=== PATIENT | female | born 1970 | race Native Hawaiian/Other Pacific Islander ===

== ENCOUNTER 2016-06-22 19:14 | Emergency (ER) | payer OTHER, SELFPAY ==
[2016-06-22 19:26] VITALS: BP 121/80; PULSE 70; RESP 18; TEMP 98.2; O2SAT 100
--- NOTE | 2016-06-22 20:21 | ED PDOC ---
HPI: Abdomen Time Seen by Provider: 06/22/16 19:29 Chief Complaint (Nursing): Abdominal Pain Chief Complaint (Provider): Abdominal Pain History Per: Patient History/Exam Limitations: no limitations Onset/Duration Of Symptoms: Days (1 week) Outside of [place] travel?: No Current Symptoms Are (Timing): Still Present Severity: Moderate Pain Scale Rating Of: 4 Location Of Pain/Discomfort: LLQ Associated Symptoms: Other (b/l leg swelling and paresthesias; denies shortness of breath). denies: Fever, Vomiting, Diarrhea, Chest Pain, Urinary Symptoms Additional Complaint(s): Gabby Diaz is a 45 year old female, with a past medical history of cervical cancer, who presents to the emergency department for the evaluation of abdominal pain, localized to her left lower quadrant, that the patient has been experiencing for 1 week. Associated bilateral leg swelling and paresthesias are currently present. Denies a fever, vomiting, diarrhea, urinary symptoms, chest pain, or shortness of breath. PMD: none specified Past Medical History Reviewed: Historical Data, Nursing Documentation, Vital Signs Vital Signs: Last Vital Signs Temp 98.2 F 06/22/16 19:22 Pulse 70 06/22/16 19:22 Resp 18 06/22/16 19:22 BP 121/80 06/22/16 19:22 Pulse Ox 100 06/23/16 00:41 - Medical History Other PMH: Cervical Cancer - Surgical History Other surgeries: Hysterectomy (11/21) - Family History Family History: States: No Known Family Hx - Social History Current smoker - smoking cessation education provided: No Ex-Smoker (has not smoked in the last 12 months): No Alcohol: None Drugs: Denies - Allergies Allergies/Adverse Reactions: Allergies Allergy/AdvReac Type Severity Reaction Status Date / Time Penicillins Allergy SHORTNESS Verified 06/22/16 21:52 OF BREATH Review of Systems ROS Statement: Except As Marked, All Systems Reviewed And Found Negative Constitutional: Negative for: Fever Cardiovascular: Positive for: Edema (b/l legs inclusive of paresthesias). Negative for: Chest Pain Respiratory: Negative for: Shortness of Breath Gastrointestinal: Positive for: Abdominal Pain (LLQ). Negative for: Vomiting, Diarrhea Genitourinary Female: Negative for: Dysuria, Hematuria Physical Exam - Reviewed Nursing Documentation Reviewed: Yes Vital Signs Reviewed: Yes - Physical Exam Appears: Positive for: No Acute Distress. Negative for: Uncomfortable Head Exam: Positive for: ATRAUMATIC, NORMOCEPHALIC Skin: Positive for: Normal Color, Warm, Dry Cardiovascular/Chest: Positive for: Regular Rate, Rhythm. Negative for: Murmur Respiratory: Positive for: Normal Breath Sounds. Negative for: Respiratory Distress Gastrointestinal/Abdominal: Positive for: Normal Exam, Soft, Tenderness (LLQ). Negative for: Distended Back: Positive for: Normal Inspection. Negative for: L CVA Tenderness, R CVA Tenderness Extremity: Positive for: Normal ROM, Swelling (b/l lower extremities, L more swollen than R). Negative for: Tenderness Neurologic/Psych: Positive for: Alert, Oriented - Laboratory Results Result Diagrams: 06/22/16 20:19 06/22/16 20:19 Urine dip results: Negative for: Leukocyte Esterase, Blood, Nitrate, Ketones - ECG O2 Sat by Pulse Oximetry: 100 (RA) Pulse Ox Interpretation: Normal - CT Scan/US Extremity Ultrasound Other Rad Studies (CT/US): Interpreted By Me, Read By Radiologist, Radiology Report Reviewed Medical Decision Making Medical Decision Makin:29 Initial Impression: Abdominal pain and paresthesias Differential Diagnoses include, but are not limited to, abdominal cancer, diverticulitis, small bowel obstruction, as well as deep vein thrombosis. Initial Plan: * Extremity Ultrasound * CBC * CMP * PT/PTT * Urine Dip * Reevaluation 21:18 Extremity Ultrasound Results FINDINGS: Right deep veins: Common femoral, superficial femoral, popliteal and posterior tibial veins were evaluated. All veins examined are compressible. There are no intraluminal filling defects. There is expected blood flow on Doppler imaging. There is change in waveform with augmentation. Left deep veins: Common femoral, superficial femoral, popliteal and posterior tibial veins were evaluated. All veins examined are compressible. There are no intraluminal filling defects. There is expected blood flow on Doppler imaging. There is change in waveform with augmentation. IMPRESSION: No deep venous thrombosis in the visualized vascular segments of the lower extremities. 2338: CT A/P impression: Colitis with probable reactive inflammation in the adjacent urinary bladder; no CT findings of appendicitis or diverticulitis; slight interval increase in conspicuity of the left lower lobe nodule now 5.4 mm; interval hysterectomy Additional findings as described above. Footer: As per Fleischner Society guidelines for follow-up and management of pulmonary nodules: For patients at low risk (minimal or absent history of smoking and of other known risk factors), recommend follow-up chest CT at 12 months; if unchanged, no further follow-up. For patient at high risk (history of smoking or of other known risk factors), recommend initial follow-up chest CT at 6-12 months, then at 18-24 months if no interval change. Scribe Attestation: Documented by Chase Bernal, acting as a scribe for Ariel Montemayor MD. Provider Scribe Attestation: All medical record entries made by the Scribe were at my direction and personally dictated by me. I have reviewed the chart and agree that the record accurately reflects my personal performance of the history, physical exam, medical decision making, and the department course for this patient. I have also personally directed, reviewed, and agree with the discharge instructions and disposition. Disposition - Clinical Impression Clinical Impression: Leg swelling, Colitis, Neuropathic pain, Neutropenia, Pulmonary nodule - Patient ED Disposition Is Patient to be Admitted: No Doctor Will See Patient In The: Office Counseled Patient/Family Regarding: Studies Performed, Diagnosis, Need For Followup - Disposition Referrals: [facility] [Outside] Disposition: Routine/Home Disposition Time: 00:30 Condition: GOOD Additional Instructions: Return for worsening. Follow up with your PCP in 2-3 days. Instructions: Peripheral Neuropathy (ED), Leg Edema (ED), Colitis (ED), Pulmonary Nodules (ED)
[2016-06-22 20:31] LABS: BASO % 1.1 % (0.0-2.0); EOS # 0.1 K/uL (0.0-0.7); EOS % 4.8 % (0.0-4.0); HEMATOCRIT 36.9 % (34.0-47.0); LYMPH # 0.6 K/uL (1.0-4.3); LYMPH % 29.2 % (20.0-40.0); MEAN CELL VOLUME 88.7 fl (81.0-99.0); MEAN CORPUSCULAR HEMOGLOBIN 28.7 pg (27.0-31.0); MEAN CORPUSCULAR HGB CONC 32.4 g/dL (33.0-37.0); MEAN PLATELET VOLUME 8.9 fl (7.2-11.7); MONO # 0.2 K/uL (0.0-0.8); MONO % 7.7 % (0.0-10.0); NEUT # 1.2 K/uL (1.8-7.0); NEUT % 57.2 % (50.0-75.0); NRBC % 0.1 % (0.0-0.0); RED CELL DISTRIBUTION WIDTH 13.4 % (11.5-14.5); WHITE BLOOD COUNT 2.1 K/uL (4.8-10.8)
[2016-06-22 20:36] LABS: ALB/GLOB RATIO 1.5 (1.0-2.1); ALKALINE PHOSPHATASE 53 U/L (38-126); ALT/SGPT 30 U/L (9-52); AST/SGOT 21 U/L (14-36); BILIRUBIN,TOTAL 0.5 mg/dl (0.2-1.3); BLOOD UREA NITROGEN 12 mg/dl (7-17); CALCIUM 8.9 mg/dL (8.4-10.2); CARBON DIOXIDE 26 mmol/L (22-30); CHLORIDE 103 mmol/L (98-107); GFR AFRICAN-AMERICAN > 60; GLUCOSE,RANDOM 83 mg/dL (65-105); POTASSIUM 3.4 MMOL/L (3.6-5.0); SODIUM 140 mmol/l (132-148); TOTAL PROTEIN 7.1 G/DL (6.3-8.2)
[2016-06-22] MEDS ORDERED: Iohexol 240 (50 ml) PO ONE (20:58)
[2016-06-22 21:10] LABS: PARTIAL THROMBOPLASTIN TIME 25.1 SECONDS (23.3-32.5)
--- NOTE | 2016-06-22 21:18 | US ---
EXAM: US Duplex Bilateral Lower Extremity Veins CLINICAL HISTORY: 45 years old, female; Pain; Leg, lower; Bilateral; Additional info: Leg swelling TECHNIQUE: Real-time ultrasound scan of the veins of the bilateral lower extremities with color Doppler flow, spectral waveform analysis and compression. EXAM DATE/TIME: 06/22/2016 7:52 PM COMPARISON: There are no prior studies for comparison. FINDINGS: Right deep veins: Common femoral, superficial femoral, popliteal and posterior tibial veins were evaluated. All veins examined are compressible. There are no intraluminal filling defects. There is expected blood flow on Doppler imaging. There is change in waveform with augmentation. Left deep veins: Common femoral, superficial femoral, popliteal and posterior tibial veins were evaluated. All veins examined are compressible. There are no intraluminal filling defects. There is expected blood flow on Doppler imaging. There is change in waveform with augmentation. Impression: No deep venous thrombosis in the visualized vascular segments of the lower extremities
[2016-06-22] MEDS ORDERED: Sodium Chloride 0.9% 50 ML IV ONE (22:53)
[2016-06-22] MEDS ORDERED: Iohexol 300 100 ML IJ ONE (22:53)
--- NOTE | 2016-06-22 23:39 | CT ---
EXAM: CT Abdomen and Pelvis With Intravenous Contrast CLINICAL HISTORY: 45 years old, female; Pain; Abdominal pain; Localized; Left lower quadrant (llq); Prior surgery; Surgery date: 6+ months; Surgery type: Hysterectomy 11/2015; Additional info: Abdominal pain S/P lap hysterectomy TECHNIQUE: Axial computed tomography images of the abdomen and pelvis with intravenous contrast. This CT exam was performed using one or more of the following dose reduction techniques: automated exposure control, adjustment of the mA and/or kV according to patient size, and/or use of iterative reconstruction technique. Coronal and sagittal reformatted images were created and reviewed. CONTRAST: 90 mL of administered intravenously. EXAM DATE/TIME: 06/22/2016 8:58 PM COMPARISON: CT - ABD PELVIS PO IV CONTRAST 11/09/2015 10:54:36 AM FINDINGS: Lower thorax: Heart size is normal. There is minimal dependent atelectasis at the lung bases. There is increasing conspicuity of the 5.4 mm left lower lobe nodule, image 7 series 2 There is a small hiatal hernia. ABDOMEN: Liver: There is fatty infiltration of the liver. Gallbladder and bile ducts: unremarkable Pancreas: unremarkable Spleen: unremarkable Adrenals: unremarkable Kidneys and ureters: There is a tiny right lower pole renal cyst.Kidneys and ureters are otherwise unremarkable. Stomach and bowel: Stomach is incompletely distended which accentuates the gastric wall.Bowel rotation is normal.There is no obstruction. There is contrast throughout the small bowel. Terminal ileum is unremarkable. Visualized portion the appendix is unremarkable. Colon is incompletely distended which limits evaluation. There is sigmoid and rectal wall thickening. There is minimal adjacent inflammation. There are few scattered diverticula. Appendix: See stomach and bowel PELVIS: Bladder: Urinary bladder is partially distended. Bladder is partially distended. There is mild bladder wall thickening. There is minimal perivesical inflammation. Reproductive: Uterus is absent. There are no adnexal masses. ABDOMEN and PELVIS: Intraperitoneal space: There is small amount of free fluid in the pelvis. There is edema in the perirectal and presacral soft tissues. Bones/joints: There are no acute osseous abnormalities. There are early degenerative changes L5/S1. There is mild to space narrowing and disc bulging. Soft tissues: There is edema in the lower abdominal wall. Vasculature: Vascular structures are unremarkable. Lymph nodes: There is no pathologic adenopathy. IMPRESSION: Colitis with probable reactive inflammation in the adjacent urinary bladder; no CT findings of appendicitis or diverticulitis; slight interval increase in conspicuity of the left lower lobe nodule now 5.4 mm; interval hysterectomy Additional findings as described above. Footer: As per Fleischner Society guidelines for follow-up and management of pulmonary nodules: For patients at low risk (minimal or absent history of smoking and of other known risk factors), recommend follow-up chest CT at 12 months; if unchanged, no further follow-up. For patient at high risk (history of smoking or of other known risk factors), recommend initial follow-up chest CT at 6-12 months, then at 18-24 months if no interval change.
== END 2016-06-22 20:00 | disposition home or self-care (01) ==
LOC: H.ER 19:14
DX: M79.89 Other specified soft tissue disorders (principal); R91.1 Solitary pulmonary nodule; D70.9 Neutropenia, unspecified; Z85.41 Personal history of malignant neoplasm of cervix uteri; Z88.0 Allergy status to penicillin; Z90.710 Acquired absence of both cervix and uterus

== ENCOUNTER 2016-06-28 19:09 | Inpatient (IN) | payer SELFPAY ==
[2016-06-28] MEDS ORDERED: Sodium Chloride 0.9% 1,000 ML IV STA (20:34)
[2016-06-28 21:06] LABS: BASO % 0.8 % (0.0-2.0); EOS # 0.1 K/uL (0.0-0.7); EOS % 4.9 % (0.0-4.0); HEMATOCRIT 39.9 % (34.0-47.0); LYMPH # 0.7 K/uL (1.0-4.3); MEAN CELL VOLUME 88.1 fl (81.0-99.0); MEAN CORPUSCULAR HEMOGLOBIN 28.7 pg (27.0-31.0); MEAN CORPUSCULAR HGB CONC 32.6 g/dL (33.0-37.0); MEAN PLATELET VOLUME 9.4 fl (7.2-11.7); MONO # 0.2 K/uL (0.0-0.8); MONO % 8.3 % (0.0-10.0); NEUT # 1.3 K/uL (1.8-7.0); NRBC % 0.3 % (0.0-0.0); RED CELL DISTRIBUTION WIDTH 13.3 % (11.5-14.5); WHITE BLOOD COUNT 2.3 K/uL (4.8-10.8)
[2016-06-28 21:15] LABS: ALB/GLOB RATIO 1.5 (1.0-2.1); ALKALINE PHOSPHATASE 53 U/L (38-126); ALT/SGPT 29 U/L (9-52); AST/SGOT 25 U/L (14-36); BILIRUBIN,TOTAL 0.6 mg/dl (0.2-1.3); BLOOD UREA NITROGEN 10 mg/dl (7-17); CALCIUM 9.1 mg/dL (8.4-10.2); CARBON DIOXIDE 25 mmol/L (22-30); CHLORIDE 103 mmol/L (98-107); GFR AFRICAN-AMERICAN > 60; GLUCOSE,RANDOM 84 mg/dL (65-105); LIPASE 56 U/L (23-300); POTASSIUM 4.1 MMOL/L (3.6-5.0); SODIUM 139 mmol/l (132-148); TOTAL PROTEIN 7.4 G/DL (6.3-8.2)
[2016-06-28 21:22] LABS: PARTIAL THROMBOPLASTIN TIME 25.2 SECONDS (23.3-32.5)
[2016-06-28] MEDS ORDERED: metroNIDAZOLE 500mg/100ml NS 100 ML IVPB STA (21:25)
[2016-06-28] MEDS ORDERED: Ciprofloxacin 400mg/200ml D5W 400 MG/200 ML BAG IV STA (21:25)
--- NOTE | 2016-06-28 21:54 | ED PDOC ---
HPI: Abdomen Time Seen by Provider: 06/28/16 19:36 Chief Complaint (Nursing): Abdominal Pain Chief Complaint (Provider): Abdominal Pain History Per: Patient History/Exam Limitations: no limitations Onset/Duration Of Symptoms: Days Current Symptoms Are (Timing): Still Present Additional Complaint(s): 45 y/o female with a past medical history of cervical cancer presents to the emergency department with a complaint of persistent diffuse abdominal pain associated with increased normal stool frequency x1 week. Patient was discharged on 06/22/2016 and was told to follow up with PMD; when she saw her PCP today she was advised her visit the ER for an evaluation. Denies fever, chills, cough, chest pain, shortness of breath, urinary symptoms, nausea, vomiting, or diarrhea. Of note, patient was seen in the ED [address] workup that demonstrated colitis and CBC that showed leukopenia. Patient has a history of a hysterectomy and underwent 18 cycles of radiation therapy. PMD: Dr. Danny Colvin Past Medical History Reviewed: Historical Data, Nursing Documentation, Vital Signs Vital Signs: Last Vital Signs Temp 97.8 F 06/29/16 00:13 Pulse 59 L 06/29/16 00:13 Resp 19 06/29/16 00:13 BP 99/64 L 06/29/16 00:13 Pulse Ox 99 06/29/16 00:13 - Medical History Other PMH: Cervical CA - Surgical History Other surgeries: hysterectomy - Family History Family History: States: Unknown Family Hx - Home Medications Home Medications: Ambulatory Orders Medication Instructions Recorded Acetaminophen with Codeine 2 tab PO Q4H PRN #22 tab 09/24/15 [Tylenol with Codeine No. 3 300 mg-30 mg] Naproxen [Naprosyn] 1 tab PO BID PRN #60 tab 09/24/15 - Allergies Allergies/Adverse Reactions: Allergies Allergy/AdvReac Type Severity Reaction Status Date / Time Penicillins Allergy SHORTNESS Verified 06/28/16 19:18 OF BREATH Review of Systems ROS Statement: Except As Marked, All Systems Reviewed And Found Negative Constitutional: Negative for: Fever, Chills Cardiovascular: Negative for: Chest Pain Respiratory: Negative for: Cough, Shortness of Breath Gastrointestinal: Positive for: Abdominal Pain, Other (Increased stool frequency but normal bowel movements). Negative for: Nausea, Vomiting, Diarrhea Genitourinary Female: Negative for: Dysuria, Frequency, Incontinence, Hematuria Physical Exam - Reviewed Nursing Documentation Reviewed: Yes Vital Signs Reviewed: Yes - Physical Exam Appears: Positive for: Non-toxic, No Acute Distress Head Exam: Positive for: ATRAUMATIC, NORMOCEPHALIC Skin: Positive for: Normal Color, Warm, Dry Neck: Positive for: Normal, Supple Cardiovascular/Chest: Positive for: Regular Rate, Rhythm. Negative for: Murmur Respiratory: Positive for: Normal Breath Sounds. Negative for: Accessory Muscle Use, Respiratory Distress Gastrointestinal/Abdominal: Positive for: Soft, Tenderness (Mild diffuse abdominal tenderness) Extremity: Positive for: Normal ROM. Negative for: Pedal Edema Neurologic/Psych: Positive for: Alert, Oriented - Laboratory Results Result Diagrams: 06/28/16 20:57 06/28/16 20:57 - ECG O2 Sat by Pulse Oximetry: 100 (RA) Pulse Ox Interpretation: Normal Medical Decision Making Medical Decision Making: Time: 19:36 Initial impression: 45 y/o with abdominal pain and leukopenia in setting of known cervical cancer status post radiation therapy Initial plan: --ED Urine dipstick (POC) --Ciprofloxacin 400 mg in 200 ml IV Stat --Metronidazole 500 mg/100 ml IVPB Stat --Sodium Chloride 1,000 ml IV 1,000 mls/hr --Blood Culture Stat --IV Insertion --Urinalysis Stat --Revaluation --Patient declines analgesia Labs reviewed sig for leukopenia CT A/P from 5 days [employer] demonstrated colitis IV Cipro and Flagyl ordered Plan to admit for further tx ----Admit to hospital Routine: Inpatient Colitis (Infectious vs Radiation?) Scribe Attestation: Documented by Maggi Bush, acting as a scribe for Michael Lozano MD. Provider Scribe Attestation: All medical record entries made by the Scribe were at my direction and personally dictated by me. I have reviewed the chart and agree that the record accurately reflects my personal performance of the history, physical exam, medical decision making, and the department course for this patient. I have also personally directed, reviewed, and agree with the discharge instructions and disposition. Disposition - Clinical Impression Clinical Impression: Colitis - Patient ED Disposition Is Patient to be Admitted: Yes Discussed With : Karina Aguilar - Disposition Disposition Time: 21:00 Condition: FAIR - Pt Status Changed To: Hospital Disposition Of: Inpatient - Admit Certification Admit to Inpatient:: After my assessment, the patient will require hospitalization for at least two midnights. This is because of the severity of symptoms shown, intensity of services needed, and/or the medical risk in this patient being treated as an outpatient.
[2016-06-28] MEDS ORDERED: Ciprofloxacin 400mg/200ml D5W 400 MG/200 ML BAG IVPB ONE (22:10)
--- NOTE | 2016-06-28 22:22 | CP.PCM.HP ---
History of Present Illness - History of Present Illness History of Present Illness: 45 y/o female with a past medical history of cervical cancer (last dose of radiation march 2016) presented to the emergency department with a complaint of persistent diffuse abdominal pain associated with increased normal stool frequency x1 week. Patient was in the ED on 06/22/2016 with same complaints work up including abdominal CT showed evidence of colitis, but pt was leukopenic and was presumed to be due to radiation and not treated on antibiotics. Pt followed up with her PCP earlier today, Per pt's PCP (Dr Colvin),on physical exam pt's bladder appeared to very distended, pt was tender on palpation; however since there is no bladder scan available in clinic pt was told to go to [facility] ED to be evaluated. .Denies fever, chills, cough, chest pain , shortness of breath, urinary symptoms, nausea, vomiting, or diarrhea. PMD: Dr. Danny Colvin Present on Admission - Present on Admission Any Indicators Present on Admission: No Review of Systems - Review of Systems All systems: reviewed and no additional remarkable complaints except Review of Systems: Per HPI Past Patient History - Past Social History Smoking Status: Never Smoked - PSYCHIATRIC Hx Substance Use: No - SURGICAL HISTORY Hx Hysterectomy: Yes (cervial ca) Meds Allergies/Adverse Reactions: Allergies Allergy/AdvReac Type Severity Reaction Status Date / Time Penicillins Allergy SHORTNESS Verified 06/28/16 19:18 OF BREATH Physical Exam - Constitutional Appears: Non-toxic, No Acute Distress - Head Exam Head Exam: NORMOCEPHALIC - Eye Exam Eye Exam: Normal appearance - ENT Exam ENT Exam: Mucous Membranes Moist - Respiratory Exam Respiratory Exam: Clear to Auscultation Bilateral, NORMAL BREATHING PATTERN. absent: Rhonchi, Wheezes - Cardiovascular Exam Cardiovascular Exam: REGULAR RHYTHM, +S1, +S2 - GI/Abdominal Exam GI & Abdominal Exam: Normal Bowel Sounds, Soft, Tenderness Additional comments: tenderness mainly in the lower abdomen - Extremities Exam Extremities exam: Negative for: calf tenderness, pedal edema - Neurological Exam Neurological exam: Alert, CN II-XII Intact, Oriented x3 Results - Vital Signs Recent Vital Signs: Last Vital Signs Temp 98.0 F 06/28/16 19:18 Pulse 64 06/28/16 19:18 Resp 16 06/28/16 19:18 BP 116/73 06/28/16 19:18 Pulse Ox 100 06/28/16 22:06 - Labs Result Diagrams: 06/28/16 20:57 06/28/16 20:57 Assessment & Plan - Assessment and Plan (Free Text) Assessment: 45 y/o female with history of cervical cancer completed radiation in march2016,being admitted for colitis seen on previous abdominal CT, and concern for bladder urinary retention Plan: colitis more likely due to radiation than infectious process started on flagyl and cipro in ED, will continue pt remains afebrile continue to monitor Bladder distention Bladder scan perform at bedside by nurse on med-surge : 147ml Pt last voided 2-3 hrs prior Made pt's PCP aware of finding. Monitor pain- toradol for pain diet- regular DVT prohylaxis- Lovenox SC 40mg
[2016-06-28] MEDS ORDERED: metroNIDAZOLE 500mg/100ml NS 100 ML IVPB ONE (22:37)
[2016-06-29] MEDS: metroNIDAZOLE 500mg/100ml NS 100 ML IVPB SCH ×2 (08:43→20:55)
[2016-06-29] MEDS: Ciprofloxacin 400mg/200ml D5W 400 MG/200 ML BAG IVPB SCH ×2 (08:43→22:07)
[2016-06-29] MEDS: Enoxaparin 40 mg Syringe SC SCH (08:44)
--- NOTE | 2016-06-29 09:26 | CP.PCM.PN ---
Subjective - Date & Time of Evaluation Date of Evaluation: 06/29/16 Time of Evaluation: 07:00 - Subjective Subjective: Patient was seen and examined at bedside this morning. Patient still complaining of lower abdominal/pelvic/pubic pain, intensity 5/10, that has been improved since admission. Patient reports she is voiding, this morning twice, and denies urinary symptoms or blood in urine. Patient states she is passing gas and bowel movements. Denies chills, nausea, vomiting, blood in stools, CP, SOB or other complains Objective - Vital Signs/Intake and Output Vital Signs (last 24 hours): Temp Pulse Resp BP Pulse Ox 98.5 F 55 L 18 99/65 L 98 06/29/16 08:25 06/29/16 08:25 06/29/16 08:25 06/29/16 08:25 06/29/16 08:25 Intake and Output: 06/29/16 06/29/16 06:59 18:59 Output Total 200 Balance -200 - Medications Medications: Current Medications Enoxaparin Sodium (Lovenox) 40 mg SC DAILY MAKENZIE PRN Reason: Protocol Last Admin: 06/29/16 08:44 Dose: 40 mg Ciprofloxacin (Cipro 400mg/200ml Dsw) 400 mg in 200 mls @ 200 mls/hr IVPB Q12 [facility] Last Admin: 06/29/16 08:43 Dose: 200 mls/hr Metronidazole (Flagyl 500mg/100ml Ns) 100 mls @ 100 mls/hr IVPB Q12 MAKENZIE Last Admin: 06/29/16 08:43 Dose: 100 mls/hr Ketorolac Tromethamine (Toradol) 15 mg IVP Q6 PRN PRN Reason: Pain, moderate (4-7) Ketorolac Tromethamine (Toradol) 30 mg IVP Q6 PRN PRN Reason: Pain, severe (8-10) - Labs Labs: PT 10.6 SECONDS (9.6-11.2) 06/28/16 20:57 INR 1.02 (0.92-1.08) 06/28/16 20:57 APTT 25.2 SECONDS (23.3-32.5) 06/28/16 20:57 - Constitutional Appears: Non-toxic, No Acute Distress - ENT Exam ENT Exam: Mucous Membranes Moist - Respiratory Exam Respiratory Exam: Clear to Ausculation Bilateral, NORMAL BREATHING PATTERN. absent: Rales, Rhonchi, Wheezes - Cardiovascular Exam Cardiovascular Exam: REGULAR RHYTHM, +S1, +S2 - GI/Abdominal Exam GI & Abdominal Exam: Soft, Tenderness (mild tender to palpation of lower abdomen , but no rebound tenderness), Normal Bowel Sounds. absent: Distended, Guarding , Rigid - Exam Additional comments: mild tenderness in pubic area, no ecchymosis or lesion of overlying skin noted - Extremities Exam Extremities Exam: Normal Inspection. absent: Calf Tenderness, Pedal Edema - Neurological Exam Neurological Exam: Alert, Awake, Oriented x3 - Skin Skin Exam: Dry, Intact, Normal Color Assessment and Plan - Assessment and Plan (Free Text) Assessment: 45 y/o female with history of cervical cancer completed radiation in march2016 , being admitted for colitis seen on previous abdominal CT, now with new onset leucopenia. Plan: Colitis -More likely due to radiation than infectious process Afebrile C/W Ciprofloxacin 400 mg IV BID C/W Flagyl 500 mg IV BID C/W pain management Consider GI consult. Dr. Everett. F/U recommendations Leucopenia -Afebrile -H/O of Cervical cancer s/p radiation on March/2016 -F/U blood culture -Hematology Oncology consult appreciated. Dr. Prieto. F/U recommendations H/O recent Bladder distention -Possible secondary to radiation therapy -Improving today, has voided twice this morning, no urinary symptoms -UA done at ED was negative -CMP was WNL -Bladder scan perform at bedside by nurse on med-surge on admission: 147 ml -Will monitor Diet Regular diet DVT prohylaxis- Lovenox SC 40mg
[2016-06-29 09:37] LABS: RBC URINE < 1 /hpf (0-3); URINE BILIRUBIN NEGATIVE (NEGATIVE); URINE BLOOD NEGATIVE (NEGATIVE); URINE COLOR YELLOW (YELLOW); URINE GLUCOSE (UA) NEG (Normal); URINE KETONE NEGATIVE (NEGATIVE); URINE LEUKOCYTE ESTERASE TRACE Leu/uL (Negative); URINE PROTEIN NEGATIVE (NEGATIVE); URINE UROBILINOGEN 0.2-1.0 mg/dL (0.2-1.0); WBC URINE 1 /hpf (0-5)
--- NOTE | 2016-06-29 12:42 | CP.PCM.CON ---
History of Present Illness - History of Present Illness History of Present Illness: 45 year old female with a history of cervical cancer s/p surgery at [facility] and adjuvant radiotherapy completed in 03/2016 in [place], admitted with abdominal pain, found to have colitis and cystitis. The patient reports to burning pelvic pain and burning with urination. Past Patient History - Past Medical History & Family History Past Medical History?: Yes - Past Social History Smoking Status: Never Smoked - CARDIAC Hx Cardiac Disorders: No - PULMONARY Hx Respiratory Disorders: No - NEUROLOGICAL Hx Neurological Disorder: No - HEENT Hx HEENT Problems: No - RENAL Hx Chronic Kidney Disease: No - ENDOCRINE/METABOLIC Hx Endocrine Disorders: No - HEMATOLOGICAL/ONCOLOGICAL Hx Blood Disorders: Yes (cervical CA) - INTEGUMENTARY Hx Dermatological Problems: No - MUSCULOSKELETAL/RHEUMATOLOGICAL Hx Falls: No - GASTROINTESTINAL Hx Gastrointestinal Disorders: No - GENITOURINARY/GYNECOLOGICAL Hx Genitourinary Disorders: Yes (hysterectomy) Hx Cervical Cancer: Yes - PSYCHIATRIC Hx Substance Use: No - SURGICAL HISTORY Hx Hysterectomy: Yes (cervial ca) - ANESTHESIA Hx Anesthesia: Yes Hx Anesthesia Reactions: No Meds Allergies/Adverse Reactions: Allergies Allergy/AdvReac Type Severity Reaction Status Date / Time Penicillins Allergy SHORTNESS Verified 06/28/16 19:18 OF BREATH - Medications Medications: Current Medications Enoxaparin Sodium (Lovenox) 40 mg SC DAILY [facility] PRN Reason: Protocol Last Admin: 06/29/16 08:44 Dose: 40 mg Ciprofloxacin (Cipro 400mg/200ml Dsw) 400 mg in 200 mls @ 200 mls/hr IVPB Q12 [facility] Last Admin: 06/29/16 08:43 Dose: 200 mls/hr Metronidazole (Flagyl 500mg/100ml Ns) 100 mls @ 100 mls/hr IVPB Q12 [facility] Last Admin: 06/29/16 08:43 Dose: 100 mls/hr Ketorolac Tromethamine (Toradol) 15 mg IVP Q6 PRN PRN Reason: Pain, moderate (4-7) Ketorolac Tromethamine (Toradol) 30 mg IVP Q6 PRN PRN Reason: Pain, severe (8-10) Physical Exam - Head Exam Head Exam: ATRAUMATIC - Eye Exam Eye Exam: Normal appearance - ENT Exam ENT Exam: Mucous Membranes Dry - Respiratory Exam Respiratory Exam: NORMAL BREATHING PATTERN - Cardiovascular Exam Cardiovascular Exam: +S1, +S2 - GI/Abdominal Exam GI & Abdominal Exam: Normal Bowel Sounds - Extremities Exam Extremities exam: Positive for: normal inspection - Neurological Exam Neurological exam: Oriented x3 - Psychiatric Exam Psychiatric exam: Normal Affect, Normal Mood - Skin Skin Exam: Warm Results - Vital Signs Recent Vital Signs: Last Vital Signs Temp 98.5 F 06/29/16 08:25 Pulse 55 L 06/29/16 08:25 Resp 18 06/29/16 08:25 BP 99/65 L 06/29/16 08:25 Pulse Ox 98 06/29/16 08:25 - Labs Result Diagrams: 06/30/16 06:40 06/28/16 20:57 Labs: Laboratory Results - last 24 hr 06/29/16 09:13 Urine Color Yellow Urine Clarity Clear Urine pH 6.0 Ur Specific Terrell 1.010 Urine Protein Negative Urine Glucose (UA) Neg Urine Ketones Negative Urine Blood Negative Urine Nitrate Negative Urine Bilirubin Negative Urine Urobilinogen 0.2-1.0 Ur Leukocyte Esterase Trace Urine RBC (Auto) < 1 Urine Microscopic WBC 1 Ur Squamous Epith Cells 1 Assessment & Plan (1) Colitis Assessment and Plan: likely related to radiation GI evaluation outpatient f/u Status: Acute (2) Neutropenia Assessment and Plan: with mild leukopenia likely related to radiation Thank you for this interesting consult. Status: Acute
[2016-06-30 07:52] LABS: HEMATOCRIT 39.7 % (34.0-47.0); MEAN CELL VOLUME 88.1 fl (81.0-99.0); MEAN CORPUSCULAR HEMOGLOBIN 28.9 pg (27.0-31.0); MEAN CORPUSCULAR HGB CONC 32.8 g/dL (33.0-37.0)
[2016-06-30 08:15] VITALS: TEMP 97.9; O2SAT 99
[2016-06-30] MEDS: metroNIDAZOLE 500mg/100ml NS 100 ML IVPB SCH (09:12)
[2016-06-30] MEDS: Ciprofloxacin 400mg/200ml D5W 400 MG/200 ML BAG IVPB SCH (09:12)
[2016-06-30] MEDS: Enoxaparin 40 mg Syringe SC SCH (09:13)
--- NOTE | 2016-06-30 10:28 | CP.PCM.DIS ---
Provider - Provider Date of Admission: 06/28/16 21:23 Attending physician: Marga Nina MD Time Spent in preparation of Discharge (in minutes): 30 Diagnosis - Discharge Diagnosis (1) Colitis Status: Acute Priority: High Comment: Unclear etiology. Radiation vs Infectious. (2) Pulmonary nodule Status: Acute Priority: High Comment: Prescription for chest Ct given. Will f/u results as outpatient with PMD. (3) History of cervical cancer Status: Chronic Comment: F/U with FISCAL ANALYST. Hospital Course - Lab Results Lab Results: Most Recent Lab Values WBC 2.0 K/uL (4.8-10.8) L* 06/30/16 06:40 RBC 4.51 Mil/uL (3.80-5.20) 06/30/16 06:40 Hgb 13.0 g/dL (12.0-16.0) 06/30/16 06:40 Hct 39.7 % (34.0-47.0) 06/30/16 06:40 MCV 88.1 fl (81.0-99.0) 06/30/16 06:40 MCH 28.9 pg (27.0-31.0) 06/30/16 06:40 MCHC 32.8 g/dL (33.0-37.0) L 06/30/16 06:40 RDW 13.0 % (11.5-14.5) 06/30/16 06:40 Plt Count 133 K/uL (130-400) 06/30/16 06:40 MPV 9.4 fl (7.2-11.7) 06/28/16 20:57 Neut % (Auto) 56.0 % (50.0-75.0) 06/28/16 20:57 Lymph % (Auto) 30.0 % (20.0-40.0) 06/28/16 20:57 [place] % (Auto) 8.3 % (0.0-10.0) 06/28/16 20:57 Eos % (Auto) 4.9 % (0.0-4.0) H 06/28/16 20:57 Baso % (Auto) 0.8 % (0.0-2.0) 06/28/16 20:57 Neut # 1.3 K/uL (1.8-7.0) L 06/28/16 20:57 Lymph # 0.7 K/uL (1.0-4.3) L 06/28/16 20:57 [place] # 0.2 K/uL (0.0-0.8) 06/28/16 20:57 Eos # 0.1 K/uL (0.0-0.7) 06/28/16 20:57 Baso # 0.0 K/uL (0.0-0.2) 06/28/16 20:57 PT 10.6 SECONDS (9.6-11.2) 06/28/16 20:57 INR 1.02 (0.92-1.08) 06/28/16 20:57 APTT 25.2 SECONDS (23.3-32.5) 06/28/16 20:57 Sodium 139 mmol/l (132-148) 06/28/16 20:57 Potassium 4.1 MMOL/L (3.6-5.0) 06/28/16 20:57 Chloride 103 mmol/L (98-107) 06/28/16 20:57 Carbon Dioxide 25 mmol/L (22-30) 06/28/16 20:57 Anion Gap 16 (10-20) 06/28/16 20:57 BUN 10 mg/dl (7-17) 06/28/16 20:57 Creatinine 0.5 mg/dL (0.7-1.2) L 06/28/16 20:57 Est GFR ( Amer) > 60 06/28/16 20:57 Est GFR (Non-Af Amer) > 60 06/28/16 20:57 Random Glucose 84 mg/dL (65-105) 06/28/16 20:57 Lactic Acid 1.0 MMOL/L (0.7-2.1) 06/28/16 20:57 Calcium 9.1 mg/dL (8.4-10.2) 06/28/16 20:57 Total Bilirubin 0.6 mg/dl (0.2-1.3) 06/28/16 20:57 AST 25 U/L (14-36) 06/28/16 20:57 ALT 29 U/L (9-52) 06/28/16 20:57 Alkaline Phosphatase 53 U/L (38-126) 06/28/16 20:57 Total Protein 7.4 G/DL (6.3-8.2) 06/28/16 20:57 Albumin 4.4 g/dL (3.5-5.0) 06/28/16 20:57 Globulin 3.0 gm/dL (2.2-3.9) 06/28/16 20:57 Albumin/Globulin Ratio 1.5 (1.0-2.1) 06/28/16 20:57 Lipase 56 U/L (23-300) 06/28/16 20:57 Urine Color Yellow (YELLOW) 06/29/16 09:13 Urine Clarity Clear (Clear) 06/29/16 09:13 Urine pH 6.0 (5.0-8.0) 06/29/16 09:13 Ur Specific [place] 1.010 (1.003-1.030) 06/29/16 09:13 Urine Protein Negative mg/dL (NEGATIVE) 06/29/16 09:13 Urine Glucose (UA) Neg mg/dL (Normal) 06/29/16 09:13 Urine Ketones Negative mg/dL (NEGATIVE) 06/29/16 09:13 Urine Blood Negative (NEGATIVE) 06/29/16 09:13 Urine Nitrate Negative (NEGATIVE) 06/29/16 09:13 Urine Bilirubin Negative (NEGATIVE) 06/29/16 09:13 Urine Urobilinogen 0.2-1.0 mg/dL (0.2-1.0) 06/29/16 09:13 Ur Leukocyte Esterase Trace Ralph/uL (Negative) 06/29/16 09:13 Urine RBC (Auto) < 1 /hpf (0-3) 06/29/16 09:13 Urine Microscopic WBC 1 /hpf (0-5) 06/29/16 09:13 Ur Squamous Epith Cells 1 /hpf (0-5) 06/29/16 09:13 - Hospital Course Hospital Course: 45 y/o female with a past medical history of cervical cancer s/p radiation therapy (last dose of radiation march 2016) who was admitted with colitis seen in CT scan and possible episode of urinary retention. During admission patient was afebrile, vital signs stable. Patient was managed with IV antibiotics and GI was consulted because patient history of radiation therapy. No steroid treatment was recommended at this time. Patient was found to be leucopenic, and because patient's history of cervical cancer s/p radiation, and f/u as outpatient was recommended. Patient was seen and examined at bedside this morning. Patient is stable to be discharge home in PO antibiotics, and will f/u as outpatient with PMD, GI doctor, Hematology oncology, and FISCAL ANALYST. Home medications: Ciprofloxacin 500 mg BID for 3 days - Date & Time of H&P Date of H&P: 06/28/16 Time of H&P: 22:20 Discharge Exam - Head Exam Head Exam: NORMOCEPHALIC - Additional Findings Additional findings: Constitutional Appears: Non-toxic, No Acute Distress - ENT Exam ENT Exam: Mucous Membranes Moist - Respiratory Exam Respiratory Exam: Clear to Ausculation Bilateral, NORMAL BREATHING PATTERN. absent: Rales, Rhonchi, Wheezes - Cardiovascular Exam Cardiovascular Exam: REGULAR RHYTHM, +S1, +S2 - GI/Abdominal Exam GI & Abdominal Exam: Soft, very mild tender to palpation of lower abdomen, but no rebound tenderness, no rigidity or guarding noted), Normal Bowel Sounds. absent: Distended, Guarding, Rigid - Exam Additional comments: mild tenderness in pubic area, no ecchymosis or lesion of overlying skin noted - Extremities Exam Extremities Exam: Normal Inspection. absent: Calf Tenderness, Pedal Edema - Neurological Exam Neurological Exam: Alert, Awake, Oriented x3 - Skin Skin Exam: Dry, Intact, Normal Color Discharge Plan - Discharge Medications Prescriptions: Ciprofloxacin [Cipro] 500 mg PO Q12 #6 tab - Follow Up Plan Condition: GOOD Disposition: HOME/ ROUTINE Patient education suggested?: Yes Additional Instructions: FOLLOW UP GYNE. F/U with PMD Dr. Danny Colvin within 1 week ER precautions ( fever, diarrheas, vomiting, worsening of abdominal pain...) Referrals: Prieto Prieto MD [Staff Provider] - Marguerite CORREIA,MD Juan [Medical Doctor] - Danny Colvin MD [Family Provider] -
--- NOTE | 2016-06-30 14:50 | CP.PCM.CON ---
History of Present Illness - History of Present Illness History of Present Illness: GI consult requested by Dr Orion Lopez- This is a 45 y/o female with a past medical history of cervical cancer (last dose of radiation march 2016) presented to the emergency department with a complaint of persistent diffuse abdominal pain. Patient was in the ED on 06/22/2016 with same complaints work up including abdominal CT showed evidence of colitis, but pt was leukopenic and was presumed to be due to radiation and not treated on antibiotics. Today at bedside she denies diarrhea, nausea, vomiting, abdominal cramps, fever, chills, rectal bleeding. Her symptoms are likely radiation related. Review of Systems - Review of Systems Review of Systems: 12 point ROS unremarkable except that documented in HPI Past Patient History - Past Medical History & Family History Past Medical History?: Yes - Past Social History Smoking Status: Never Smoked - CARDIAC Hx Cardiac Disorders: No - PULMONARY Hx Respiratory Disorders: No - NEUROLOGICAL Hx Neurological Disorder: No - HEENT Hx HEENT Problems: No - RENAL Hx Chronic Kidney Disease: No - ENDOCRINE/METABOLIC Hx Endocrine Disorders: No - HEMATOLOGICAL/ONCOLOGICAL Hx Blood Disorders: Yes (cervical CA) - INTEGUMENTARY Hx Dermatological Problems: No - MUSCULOSKELETAL/RHEUMATOLOGICAL Hx Falls: No - GASTROINTESTINAL Hx Gastrointestinal Disorders: No - GENITOURINARY/GYNECOLOGICAL Hx Genitourinary Disorders: Yes (hysterectomy) Hx Cervical Cancer: Yes - PSYCHIATRIC Hx Substance Use: No - SURGICAL HISTORY Hx Hysterectomy: Yes (cervial ca) - ANESTHESIA Hx Anesthesia: Yes Hx Anesthesia Reactions: No Meds Allergies/Adverse Reactions: Allergies Allergy/AdvReac Type Severity Reaction Status Date / Time Penicillins Allergy SHORTNESS Verified 06/28/16 19:18 OF BREATH - Medications Medications: Current Medications Enoxaparin Sodium (Lovenox) 40 mg SC DAILY [facility] PRN Reason: Protocol Last Admin: 06/30/16 09:13 Dose: 40 mg Ciprofloxacin (Cipro 400mg/200ml Dsw) 400 mg in 200 mls @ 200 mls/hr IVPB Q12 [facility] Last Admin: 06/30/16 09:12 Dose: 200 mls/hr Metronidazole (Flagyl 500mg/100ml Ns) 100 mls @ 100 mls/hr IVPB Q12 [facility] Last Admin: 06/30/16 09:12 Dose: 100 mls/hr Ketorolac Tromethamine (Toradol) 15 mg IVP Q6 [facility] PRN Reason: Pain, moderate (4-7) Ketorolac Tromethamine (Toradol) 30 mg IVP Q6 PRN PRN Reason: Pain, severe (8-10) Physical Exam - Constitutional Appears: Non-toxic, No Acute Distress - Head Exam Head Exam: ATRAUMATIC, NORMAL INSPECTION, NORMOCEPHALIC - Eye Exam Eye Exam: EOMI, Normal appearance, PERRL - ENT Exam ENT Exam: Mucous Membranes Moist, Normal Exam - Respiratory Exam Respiratory Exam: Clear to Auscultation Bilateral, NORMAL BREATHING PATTERN - Cardiovascular Exam Cardiovascular Exam: REGULAR RHYTHM, RRR, +S1, +S2 - GI/Abdominal Exam GI & Abdominal Exam: Distended, Normal Bowel Sounds, Soft. absent: Tenderness - Extremities Exam Extremities exam: Positive for: full ROM, normal inspection - Neurological Exam Neurological exam: Alert, CN II-XII Intact, Normal Gait, Oriented x3, Reflexes Normal - Psychiatric Exam Psychiatric exam: Normal Affect, Normal Mood - Skin Skin Exam: Dry, Intact, Normal Color, Warm Results - Vital Signs Recent Vital Signs: Last Vital Signs Temp 97.9 F 06/30/16 08:14 Pulse 59 L 06/30/16 08:14 Resp 20 06/30/16 08:14 BP 103/67 06/30/16 08:14 Pulse Ox 99 06/30/16 08:14 - Labs Result Diagrams: 06/30/16 06:40 06/28/16 20:57 Labs: Laboratory Results - last 24 hr 06/30/16 06:40 WBC 2.0 L* RBC 4.51 Hgb 13.0 Hct 39.7 MCV 88.1 MCH 28.9 MCHC 32.8 L RDW 13.0 Plt Count 133 Assessment & Plan - Assessment and Plan (Free Text) Assessment: 45 yr old F with Cervical CA s/p radiation, last dose Mar 2016 admitted with leukopenia and abdominal pain which is intermittent. Denies loose stools, nausea , vomiting, rectal bleeding. No role for steroid suppositories. CT reviewed. Likely radiation induced changes. Will discharge to home as she is tolerating regular meals and symptoms are intermittent. No indication for antibiotics. No rectal bleeding.
--- NOTE | 2016-06-30 15:05 | CP.PCM.PCO ---
Assessment/Plan - Assessment and Plan (Free Text) Assessment: I saw and evaluated the patient. I discussed the case with the resident and agree with the findings and plan as documented in the resident's note. Feels better. will continue Cipro x total of 7 days since pt does feel better. Check oupt lung ct scan Pt agreeable to follow up with Dr. Prieto. Pt will follow up with surgical oncologist.
[2016-06-30 16:17] VITALS: BP 100/65; PULSE 65; RESP 18
== END 2016-06-30 16:46 | disposition home or self-care (01) | DRG 814 ==
LOC: H.ER 19:09 → H.ERHOLD 21:23 → H.MEDSURG1 22:50
PROVIDERS: ADMIT Family Medicine Geriatric Medicine; ATTEND Family Medicine Geriatric Medicine
DX: K52.9 Noninfective gastroenteritis and colitis, unspecified (principal); D70.8 Other neutropenia; N32.89 Other specified disorders of bladder; N30.90 Cystitis, unspecified without hematuria; R91.1 Solitary pulmonary nodule; Z85.41 Personal history of malignant neoplasm of cervix uteri; Z88.0 Allergy status to penicillin; Y84.2 Radiological procedure and radiotherapy as the cause of abnormal reaction of the patient, or of later complication, without mention of misadventure at the time of the procedure

== ENCOUNTER 2016-07-21 16:57 | Observation (INO) | payer SELFPAY ==
--- NOTE | 2016-07-21 17:22 | ED PDOC ---
HPI: Chest Pain Time Seen by Provider: 07/21/16 17:21 Chief Complaint (Nursing): Chest Pain Additional Complaint(s): Patient is a 45 y/o F with hx of cervical cancer, sent in by family medicine clinic, Dr. Colvin, for evaluation. Patient was in clinic today when she began complaining of L sided chest pain. She had EKG done that showed t wave inversions in v4-v6 that was new compared to prior ekg in 2016. She reports intermittent episodes x months. She reports associated shortness of breath. Denies nausea/vomiting, abdominal pain. She was given 325mg aspirin in transit to ED. Past Medical History Vital Signs: Last Vital Signs Temp 98.0 F 07/21/16 17:02 Pulse 72 07/21/16 18:58 Resp 15 07/21/16 18:58 BP 101/69 07/21/16 18:58 Pulse Ox 99 07/21/16 18:58 - Medical History PMH: Denies: Chronic Kidney Disease - Family History Family History: States: Unknown Family Hx - Home Medications Home Medications: Ambulatory Orders Medication Instructions Recorded No Known Home Med 07/21/16 - Allergies Allergies/Adverse Reactions: Allergies Allergy/AdvReac Type Severity Reaction Status Date / Time Penicillins Allergy SHORTNESS Verified 07/21/16 17:02 OF BREATH NIKHIL Risk Score for UA/NSTEMI - NIKHIL Risk Score Age > 64: NO 3 or more CAD Risk Factors: NO Known CAD (Stenosis greater than 50%): NO Aspirin use in past 7 days: NO Severe Angina: NO EKG ST changes greater than 0.5mm: NO Positive Cardiac Marker: NO NIKHIL Score: 0 Risk %: 5% Wells Criteria for PE - Wells Criteria for Pulmonary Embolism Malignancy w/treatment within 6 months, or palliative: Yes Total Score: 1 Review of Systems Constitutional: Negative for: Fever, Chills Cardiovascular: Positive for: Chest Pain. Negative for: Palpitations, Paroxysmal Noc. Dyspnea Respiratory: Positive for: Shortness of Breath, SOB with Exertion. Negative for : Cough Gastrointestinal: Negative for: Nausea, Vomiting, Abdominal Pain, Diarrhea Genitourinary Female: Negative for: Dysuria Neurological: Negative for: Weakness, Numbness Physical Exam - Reviewed Nursing Documentation Reviewed: Yes Vital Signs Reviewed: Yes - Physical Exam Appears: Positive for: Well, Non-toxic Head Exam: Positive for: ATRAUMATIC, NORMAL INSPECTION, NORMOCEPHALIC Eye Exam: Positive for: EOMI, Normal appearance, PERRL Neck: Positive for: Normal, Painless ROM Cardiovascular/Chest: Positive for: Regular Rate, Rhythm Respiratory: Positive for: Normal Breath Sounds. Negative for: Rhonchi, Stridor , Wheezing Gastrointestinal/Abdominal: Positive for: Soft. Negative for: Tenderness, Mass , Distended Back: Positive for: Normal Inspection Extremity: Positive for: Normal ROM Neurologic/Psych: Positive for: Alert, Oriented - Laboratory Results Result Diagrams: 07/21/16 17:40 07/21/16 17:40 - ECG O2 Sat by Pulse Oximetry: 100 Medical Decision Making Medical Decision Making: Patient is presenting with chest pain and shortness of breath with new EKG changes. EKG in ED shows NSR at 60bpm with normal intervals and t wave inversion in v3 with flattening v4-v5. EKG at clinic showed t wave inversions in v2-v4 per Dr. Colvin. Spoke to Dr. Colvin, family service worker and she is requesting workup in ED and then tele observation due to chest pain with ekg changes. 6:49PM Cxray negative. Trop x 1 negative. Pending d-dimer. 700PM Will sign out to Dr. Lozano to follow-up d-dimer, reevaluate and final dispo. Disposition - Clinical Impression Clinical Impression: Chest pain - Disposition Disposition Time: 19:00 Condition: STABLE
[2016-07-21 17:59] LABS: BASO % 0.6 % (0.0-2.0); EOS # 0.1 K/uL (0.0-0.7); EOS % 5.3 % (0.0-4.0); HEMATOCRIT 37.9 % (34.0-47.0); LYMPH # 0.7 K/uL (1.0-4.3); LYMPH % 29.2 % (20.0-40.0); MEAN CELL VOLUME 87.9 fl (81.0-99.0); MEAN CORPUSCULAR HEMOGLOBIN 28.5 pg (27.0-31.0); MEAN CORPUSCULAR HGB CONC 32.4 g/dL (33.0-37.0); MEAN PLATELET VOLUME 8.8 fl (7.2-11.7); MONO # 0.2 K/uL (0.0-0.8); MONO % 8.3 % (0.0-10.0); NEUT # 1.4 K/uL (1.8-7.0); NEUT % 56.6 % (50.0-75.0); NRBC % 0.1 % (0.0-0.0); RED CELL DISTRIBUTION WIDTH 13.4 % (11.5-14.5); WHITE BLOOD COUNT 2.4 K/uL (4.8-10.8)
[2016-07-21 18:21] LABS: ALB/GLOB RATIO 1.5 (1.0-2.1); ALKALINE PHOSPHATASE 49 U/L (38-126); ALT/SGPT 34 U/L (9-52); AST/SGOT 22 U/L (14-36); BILIRUBIN,TOTAL 0.3 mg/dl (0.2-1.3); BLOOD UREA NITROGEN 10 mg/dl (7-17); CALCIUM 8.6 mg/dL (8.4-10.2); CARBON DIOXIDE 28 mmol/L (22-30); CHLORIDE 106 mmol/L (98-107); GFR AFRICAN-AMERICAN > 60; GLUCOSE,RANDOM 75 mg/dL (65-105); POTASSIUM 3.9 MMOL/L (3.6-5.0); SODIUM 144 mmol/l (132-148); TOTAL PROTEIN 7.3 G/DL (6.3-8.2)
--- NOTE | 2016-07-21 19:26 | ED PDOC ---
- Laboratory Results Result Diagrams: 07/21/16 17:40 07/21/16 17:40 - ECG O2 Sat by Pulse Oximetry: 100 Medical Decision Making Medical Decision Makin:00 Patient is signed out to me by Susana Ray MD pending d-dimer, reevaluation, and final reevaluation. 19:38 Spoke with . Patient's d-dimer is normal. Patient will be admitted to telemetry observation. Scribe Attestation: Documented by Esme Mayers, acting as a scribe for Michael Lozano MD. Provider Scribe Attestation: All medical record entries made by the Scribe were at my direction and personally dictated by me. I have reviewed the chart and agree that the record accurately reflects my personal performance of the history, physical exam, medical decision making, and the department course for this patient. I have also personally directed, reviewed, and agree with the discharge instructions and disposition. Disposition - Clinical Impression Clinical Impression: Chest pain - POA Present On Arrival: None - Disposition Disposition: Hospitalized as Observation Patient Disposition Time: 19:38 Condition: STABLE
--- NOTE | 2016-07-21 20:10 | CP.PCM.HP ---
History of Present Illness - History of Present Illness History of Present Illness: CC: Chest pain x1 week with associate b/l lower extremity edema 45F referred by [facility] for chest pain and b/l lower extremity swelling with EKG showing acute T-wave abnormality. Patient reports sharp, knife-like, constant sternal chest pain radiating to the back not associated with dizziness, nausea, or diaphoresis for 1 week. She denies any radiation to jaw, neck, or LEFT arm and denies worsening of pain with leaning forward or on deep respiration. b/l lower extremity swelling since yesterday but denies any associated calf pain or recent travel. Otherwise, she denies cough, sick contacts, fevers, chills, abd pain, diarrhea, dysuria, vaginal bleeding. PMH: SCC of Cervix, b/l Tinnitus, solitary lung nodule, XR x28 rounds last 2016, Neutropenia, Colitis PSH: Radical hysterectomy (11/2015) Smoker: Denies Alcohol: Denies Drugs: Denies ALL: PCN (anaphylaxis) XIMENA: None Present on Admission - Present on Admission Any Indicators Present on Admission: No Review of Systems - Review of Systems All systems: reviewed and no additional remarkable complaints except - Cardiovascular Cardiovascular: Chest Pain - Integumentary Integumentary: Swelling (b/l lower extremities) Past Patient History - Past Medical History & Family History Past Medical History?: Yes - Past Social History Smoking Status: Never Smoked - CARDIAC Hx Cardiac Disorders: No - PULMONARY Hx Respiratory Disorders: No - NEUROLOGICAL Hx Neurological Disorder: No - HEENT Hx HEENT Problems: No - RENAL Hx Chronic Kidney Disease: No - ENDOCRINE/METABOLIC Hx Endocrine Disorders: No - HEMATOLOGICAL/ONCOLOGICAL Hx Blood Disorders: No - INTEGUMENTARY Hx Dermatological Problems: No - MUSCULOSKELETAL/RHEUMATOLOGICAL Hx Musculoskeletal Disorders: No - GASTROINTESTINAL Hx Gastrointestinal Disorders: No Hx Colitis: Yes - GENITOURINARY/GYNECOLOGICAL Hx Genitourinary Disorders: No - PSYCHIATRIC Hx Psychophysiologic Disorder: No - SURGICAL HISTORY Hx Hysterectomy: Yes - ANESTHESIA Hx Anesthesia: Yes Hx Anesthesia Reactions: No Meds Allergies/Adverse Reactions: Allergies Allergy/AdvReac Type Severity Reaction Status Date / Time Penicillins Allergy SHORTNESS Verified 07/21/16 17:02 OF BREATH Physical Exam - Constitutional Appears: Well, Non-toxic, No Acute Distress - Head Exam Head Exam: ATRAUMATIC, NORMAL INSPECTION - Eye Exam Eye Exam: EOMI, PERRL - ENT Exam ENT Exam: Mucous Membranes Moist, Normal Exam - Neck Exam Neck exam: Positive for: Normal Inspection. Negative for: Lymphadenopathy - Respiratory Exam Respiratory Exam: Clear to Auscultation Bilateral, NORMAL BREATHING PATTERN. absent: Rales, Wheezes - Cardiovascular Exam Cardiovascular Exam: REGULAR RHYTHM. absent: JVD - GI/Abdominal Exam GI & Abdominal Exam: Normal Bowel Sounds, Soft. absent: Tenderness - Extremities Exam Extremities exam: Positive for: full ROM, normal capillary refill, normal inspection, pedal pulses present. Negative for: pedal edema, tenderness - Neurological Exam Neurological exam: Alert, Oriented x3 - Psychiatric Exam Psychiatric exam: Normal Affect, Normal Mood - Skin Skin Exam: Normal Color, Warm Results - Vital Signs Recent Vital Signs: Last Vital Signs Temp 37.1 C 07/21/16 19:58 Pulse 62 07/21/16 19:58 Resp 15 07/21/16 19:58 BP 133/66 07/21/16 19:58 Pulse Ox 100 07/21/16 19:57 - Labs Result Diagrams: 07/21/16 17:40 07/21/16 17:40 Assessment & Plan (1) Chest pain Assessment and Plan: History and physical exam inconsistent with cardiac type chest pain. Troponin negative and EKG SR and no acute ST-T changes. The other concern was for possible PE given pelvic surgery and hospitalization within the past month, however d-dimer was negative. Costochondritis vs. reflux vs. pericarditis ( less likely). CXR negative for acute pathology. - Serial Troponins - Sucralfate 1gm, PO, BID - Ibuprofen for chest discomfort Status: Acute (2) DVT prophylaxis Assessment and Plan: Lovenox 40mg, SC, HS Status: Acute (3) History of cervical cancer Assessment and Plan: Surgery 12/02/2015, 25x radiation daily, 3x weekly, last radiation . Has been leukopenic since radiation. - Has appt with Dr Prieto for further follow up Status: Chronic
[2016-07-21] MEDS ORDERED: Enoxaparin 40 mg Syringe SC SCH (22:08)
--- NOTE | 2016-07-22 08:32 | RAD ---
HISTORY: chest pain COMPARISON: Comparison is made to 11/03/2015 FINDINGS: LUNGS: No active pulmonary disease. PLEURA: No significant pleural effusion identified, no pneumothorax apparent. CARDIOVASCULAR: Normal. OSSEOUS STRUCTURES: No significant abnormalities. VISUALIZED UPPER ABDOMEN: Normal. OTHER FINDINGS: None. IMPRESSION: No radiographic evidence of acute pulmonary disease.
[2016-07-22] MEDS ORDERED: Enoxaparin 40 mg Syringe SC SCH (09:00)
[2016-07-22] MEDS ORDERED: Benzocaine/Menthol (Cepacol) Lozenge PO PRN (09:41)
--- NOTE | 2016-07-22 10:43 | CP.PCM.PN ---
Subjective - Date & Time of Evaluation Date of Evaluation: 07/22/16 Time of Evaluation: 07:00 - Subjective Subjective: Patient seen and examined at bedside, sitting in bed in no acute distress. Patient reports her substernal chest pain persists. She denies SOB, dizziness or weakness. She has complaint of sore throat with intermittent cough. Otherwise patient has no concerns or complaints at this time. Objective - Vital Signs/Intake and Output Vital Signs (last 24 hours): Temp Pulse Resp BP Pulse Ox 97.5 F L 59 L 18 108/69 99 07/22/16 08:29 07/22/16 08:29 07/22/16 08:29 07/22/16 08:29 07/22/16 08:29 - Medications Medications: Current Medications Acetaminophen (Tylenol 325mg Tab) 650 mg PO Q6 PRN PRN Reason: Pain, Mild (1-3) Benzocaine/Menthol (Cepacol Sore Throat) 1 will PO Q3 PRN PRN Reason: Sore Throat Enoxaparin Sodium (Lovenox) 40 mg SC HS MAKENZIE PRN Reason: Protocol Last Admin: 07/22/16 01:15 Dose: 40 mg Sucralfate (Carafate Tab) 1 gm PO BID [facility] Last Admin: 07/22/16 08:14 Dose: 1 gm - Constitutional Appears: Well, No Acute Distress - Head Exam Head Exam: ATRAUMATIC, NORMOCEPHALIC - Eye Exam Eye Exam: EOMI, PERRL - ENT Exam ENT Exam: Mucous Membranes Moist (mild pharyngeal erythema) - Neck Exam Neck Exam: Full ROM. absent: Lymphadenopathy - Respiratory Exam Respiratory Exam: Clear to Ausculation Bilateral, NORMAL BREATHING PATTERN - Cardiovascular Exam Cardiovascular Exam: REGULAR RHYTHM, +S1, +S2 - GI/Abdominal Exam GI & Abdominal Exam: Soft, Normal Bowel Sounds. absent: Tenderness - Extremities Exam Extremities Exam: Full ROM. absent: Joint Swelling, Pedal Edema - Back Exam Back Exam: absent: CVA tenderness (L), CVA tenderness (R) - Neurological Exam Neurological Exam: Alert, Awake, CN II-XII Intact, Oriented x3 - Psychiatric Exam Psychiatric exam: Normal Affect, Normal Mood - Skin Skin Exam: Dry, Intact, Warm Assessment and Plan - Assessment and Plan (Free Text) Assessment: 45 yr old F admitted for chest pain, lower extremity edema and abnormal EKG with T wave inversions done in clinic. Patients' repeat EKG in ED showed NSR with rate of 60bpm, troponins are negative x 2, CXR was wnl, D-Dimer wnl, chest pain has persisted. Patient has PMHx of SCC of Cervix, b/l Tinnitus, solitary lung nodule, Radiation tx x 28 rounds (last session was in ), Neutropenia and Colitis. Echo was done and we are awaiting results. 1. Chest pain -acute, stable -r/o ACS vs costochondritis -EKG with T wave inversions, ED EKG NSR at 60bpm with normal intervals and t wave inversion in v3 with flattening v4-v5 -troponin negative x 2, CXR wnl, D-dimer wnl, - Sucralfate 1gm, PO, BID - f/u repeat EKG, Echo 2. History of cervical cancer -Surgery 12/02/2015, 25x radiation daily, 3x weekly, last radiation . Has been leukopenic since radiation. -Has appt with Dr Prieto for further follow up 3. DVT prophylaxis -Lovenox 40mg, SC, HS
--- NOTE | 2016-07-22 12:01 | CARD ---
APPROVED REPORT EXAM: Two-dimensional and M-mode echocardiogram with Doppler and color Doppler. Other Information Quality : GoodRhythm : NSR INDICATION Dyspnea Chest Pain 2D DIMENSIONS IVSd0.71 (0.7-1.1cm)LVDd4.60 (3.9-5.9cm) LVOT Diameter1.95 (1.8-2.4cm)PWd0.93 (0.7-1.1cm) IVSs0.90 (0.8-1.2cm)LVDs3.42 (2.5-4.0cm) FS (%) 25.7 %PWs1.33 (0.8-1.2cm) M-Mode DIMENSIONS Left Atrium (MM)3.18 (2.5-4.0cm)IVSd0.88 (0.7-1.1cm) Aortic Root2.63 (2.2-3.7cm)LVDd5.04 (4.0-5.6cm) Aortic Cusp Exc.1.63 (1.5-2.0cm)PWd0.74 (0.7-1.1cm) IVSs1.31 cmFS (%) 41 % LVDs2.96 (2.0-3.8cm)PWs1.12 cm Mitral Valve MV E Mnghtfwr96.1cm/sMV DECEL [id number] A Kxtynevs15.2cm/s MV [id number]/A ratio1.5MVA (PHT)4.63cm2 TDI Lateral E' Peak V11.65cm/sMedial E' Peak V12.06cm/sE/Lateral E'6.2 E/Medial E'6.0 Pulmonary Valve PV Peak Vdyllssn49.0cm/s LEFT VENTRICLE The left ventricle is normal in size. There is normal left ventricular wall thickness. The left ventricular function is normal. The left ventricular ejection fraction is - 70%. There is normal LV segmental wall motion. The left ventricular diastolic function is normal. No left ventricle thrombus noted on this study. There is no ventricular septal defect visualized. There is no left ventricular aneurysm. There is no mass noted in the left ventricle. RIGHT VENTRICLE The right ventricle is normal size. There is normal right ventricular wall thickness. The right ventricular systolic function is normal. ATRIA The left atrium size is normal. There is no thrombus suspected in the left atrium. The right atrium size is normal. The interatrial septum is intact with no evidence for an atrial septal defect. AORTIC VALVE The aortic valve is normal in structure and function. No aortic regurgitation is present. There is no aortic valvular stenosis. MITRAL VALVE The mitral valve is normal in structure and function. There is no evidence of mitral valve prolapse. There is no mitral valve stenosis. Mitral regurgitation is trace. TRICUSPID VALVE The tricuspid valve is normal in structure and function. There is trace tricuspid regurgitation. There is no tricuspid valve prolapse or vegetation. There is no tricuspid valve stenosis. PULMONIC VALVE The pulmonic valve is not well visualized. There is trace pulmonic valvular regurgitation. GREAT VESSELS The aortic root is normal in size. The IVC is normal in size and collapses >50% with inspiration. PERICARDIAL EFFUSION The pericardium appears normal. There is no pleural effusion. <Conclusion> The left ventricle is normal in size and wall thickness. The left ventricular function is normal. The left ventricular ejection fraction is - 70%. The left atrium, right ventricle and right atrium are normal in size. The mitral, aortic and tricuspid valves are normal. There is trace mitral regurgitation and trace tricuspid regurgitation. The left atrium size is normal.
[2016-07-22 16:09] VITALS: BP 102/70; PULSE 62; RESP 16; TEMP 98.2; O2SAT 99
--- NOTE | 2016-07-22 19:14 | CARD ---
APPROVED REPORT EKG Measurement Heart [id number] <Conclusion> Normal sinus rhythm Normal ECG
--- NOTE | 2016-07-22 21:06 | CP.PCM.DIS ---
Provider - Provider Date of Admission: 07/21/16 19:36 Attending physician: Marga Nina MD Primary care physician: Danny Cruz at [facility] Time Spent in preparation of Discharge (in minutes): 30 Diagnosis - Discharge Diagnosis (1) Chest pain Status: Acute Priority: Low Hospital Course - Lab Results Lab Results: Most Recent Lab Values WBC 2.4 K/uL (4.8-10.8) L 07/21/16 17:40 RBC 4.32 Mil/uL (3.80-5.20) 07/21/16 17:40 Hgb 12.3 g/dL (12.0-16.0) 07/21/16 17:40 Hct 37.9 % (34.0-47.0) 07/21/16 17:40 MCV 87.9 fl (81.0-99.0) 07/21/16 17:40 MCH 28.5 pg (27.0-31.0) 07/21/16 17:40 MCHC 32.4 g/dL (33.0-37.0) L 07/21/16 17:40 RDW 13.4 % (11.5-14.5) 07/21/16 17:40 Plt Count 136 K/uL (130-400) 07/21/16 17:40 MPV 8.8 fl (7.2-11.7) 07/21/16 17:40 Neut % (Auto) 56.6 % (50.0-75.0) 07/21/16 17:40 Lymph % (Auto) 29.2 % (20.0-40.0) 07/21/16 17:40 [place] % (Auto) 8.3 % (0.0-10.0) 07/21/16 17:40 Eos % (Auto) 5.3 % (0.0-4.0) H 07/21/16 17:40 Baso % (Auto) 0.6 % (0.0-2.0) 07/21/16 17:40 Neut # 1.4 K/uL (1.8-7.0) L 07/21/16 17:40 Lymph # 0.7 K/uL (1.0-4.3) L 07/21/16 17:40 [place] # 0.2 K/uL (0.0-0.8) 07/21/16 17:40 Eos # 0.1 K/uL (0.0-0.7) 07/21/16 17:40 Baso # 0.0 K/uL (0.0-0.2) 07/21/16 17:40 D-Dimer, Quantitative 104 ng/mlDDU (0-230) 07/21/16 17:40 Sodium 144 mmol/l (132-148) 07/21/16 17:40 Potassium 3.9 MMOL/L (3.6-5.0) 07/21/16 17:40 Chloride 106 mmol/L (98-107) 07/21/16 17:40 Carbon Dioxide 28 mmol/L (22-30) 07/21/16 17:40 Anion Gap 13 (10-20) 07/21/16 17:40 BUN 10 mg/dl (7-17) 07/21/16 17:40 Creatinine 0.5 mg/dL (0.7-1.2) L 07/21/16 17:40 Est GFR ( Amer) > 60 07/21/16 17:40 Est GFR (Non-Af Amer) > 60 07/21/16 17:40 Random Glucose 75 mg/dL (65-105) 07/21/16 17:40 Calcium 8.6 mg/dL (8.4-10.2) 07/21/16 17:40 Total Bilirubin 0.3 mg/dl (0.2-1.3) 07/21/16 17:40 AST 22 U/L (14-36) 07/21/16 17:40 ALT 34 U/L (9-52) 07/21/16 17:40 Alkaline Phosphatase 49 U/L (38-126) 07/21/16 17:40 Total Creatine Kinase 60 U/L (30-135) 07/21/16 17:40 CK-MB (Mass) 0.40 ng/mL (0.0-3.38) 07/21/16 17:40 Troponin I < 0.0120 ng/mL (0.00-0.120) 07/22/16 11:09 Total Protein 7.3 G/DL (6.3-8.2) 07/21/16 17:40 Albumin 4.4 g/dL (3.5-5.0) 07/21/16 17:40 Globulin 2.9 gm/dL (2.2-3.9) 07/21/16 17:40 Albumin/Globulin Ratio 1.5 (1.0-2.1) 07/21/16 17:40 - Hospital Course Hospital Course: 45 yr old F admitted for chest pain, lower extremity edema and abnormal EKG with T wave inversions done in clinic. Patients' repeat EKG in ED showed NSR with rate of 60bpm, troponins are negative x 2, CXR was wnl, D-Dimer wnl, chest pain improved. Patient has PMHx of SCC of Cervix, b/l Tinnitus, solitary lung nodule, Radiation tx x 28 rounds (last session was in ), Neutropenia and Colitis. Echo was wnl LV normal , LVEF 70%; repeat EKG was NSR at 60bpm. Patient was discharged stable with follow up appointment on 07/28/16 at 2:20pm with Dr. Allen and she has f/u appt scheduled with Dr. Prieto. - Date & Time of H&P Date of H&P: 07/21/16 Time of H&P: 20:10 Discharge Exam - Head Exam Head Exam: ATRAUMATIC, NORMOCEPHALIC - Eye Exam Eye Exam: EOMI, PERRL - ENT Exam ENT Exam: Mucous Membranes Moist - Neck Exam Neck exam: Full Rom - Respiratory Exam Respiratory Exam: Clear to PA & Lateral, NORMAL BREATHING PATTERN - Cardiovascular Exam Cardiovascular Exam: REGULAR RHYTHM, +S1, +S2 - GI/Abdominal Exam GI & Abdominal Exam: Normal Bowel Sounds, Soft. absent: Distended, Tenderness - Extremities Exam Extremities exam: full ROM (no pedal edema, no tenderness) - Back Exam Back exam: absent: CVA tenderness (L), CVA tenderness (R) - Neurological Exam Neurological exam: Alert, CN II-XII Intact, Normal Gait, Oriented x3 - Psychiatric Exam Psychiatric exam: Normal Affect, Normal Mood - Skin Skin Exam: Dry, Intact, Normal Color, Warm Discharge Plan - Follow Up Plan Condition: STABLE Disposition: HOME/ ROUTINE Instructions: Chest Pain (DC), Costochondritis (DC) Additional Instructions: -Follow up at [facility] with Dr. Allen on 07/28/16 at 2:20pm -Follow up with as scheduled Referrals: Danny Colvin MD [Resident] -
== END 2016-07-22 17:00 | disposition home or self-care (01) ==
LOC: H.ER 16:57 → H.ERHOLD 19:36 → H.TEL 20:15
PROVIDERS: ADMIT Family Medicine Geriatric Medicine; ATTEND Family Medicine Geriatric Medicine
DX: R07.89 Other chest pain (principal); B34.9 Viral infection, unspecified; D72.819 Decreased white blood cell count, unspecified; Z85.41 Personal history of malignant neoplasm of cervix uteri; Z90.710 Acquired absence of both cervix and uterus